=== PATIENT | female | born 2000 | race Caucasian/White ===

== ENCOUNTER 2022-12-17 22:51 | Inpatient (IN) | payer MEDICAID ==
[~2022-12-17] VITALS: Ht 170.2 cm; Wt 68.3 kg
--- NOTE | 2022-12-17 00:30 | NUR ---
1215: 18G to left hand with LR 1 running. Pitocin at 2mu, per EMAR.
--- NOTE | 2022-12-17 22:50 | NUR ---
Pt ambulated onto unit, accompanied by pt significant other and pt mother. Pt oriented to LDR3 and changed into exam gown. 2304: Pt on external monitors x2. This nurse at pt bedside for introductions and POC discussion. Pt denies vaginal bleeding. Pt reports "leaking since 0900 this morning. It was clear, a steady trickling. I feel my ctx all over my lower belly and tightening across my belly. I have been having ctx all day." Amnioswab obtained, positive for ANN. Questions, concerns, and needs encouraged. Pt verbalized understanding and agreement of POC with "no" questions, concerns, or needs.
[2022-12-17 23:30] VITALS: BP 126/77; PULSE 82; TEMP 98.5
--- NOTE | 2022-12-17 23:30 | NUR ---
Ctx tracing intermittently due to pt positioning. This nurse at pt bedside palpating pt abd, with pt consent and explanation, attempting to readjust TOCO monitor.
[2022-12-18] VITALS (45 sets, daily range): BP systolic 92–160; BP diastolic 53–93; PULSE 66–107; TEMP 98.1–98.8
--- NOTE | 2022-12-18 01:15 | NUR ---
0105: Pitocin at 4mu, per EMAR. 0110: Pt off external monitors x2, ambulating to utilize bathroom.
--- NOTE | 2022-12-18 01:45 | NUR ---
Pt requested for a birthing ball. FHR and ctx tracing intermittently due to pt utilizing birthing ball. This nurse at pt bedside palpating abd, with pt consent and explanation, attempting to readjust external monitors x2.
[2022-12-18 01:49] LABS: BASO % 0.2 % (0.0-2.0); EOS % 0.3 % (0.0-4.0); GRAN # 6.3 K/mm3 (1.4-6.5); GRAN % 69.4 % (42.2-75.2); HEMOGLOBIN 10.2 g/dl (12.5-16.0); LYMPH # 1.8 K/mm3 (1.2-3.4); LYMPH % 19.6 % (20.0-51.0); MEAN CELL VOLUME 85 fl (80.0-100.0); MEAN CORPUSCULAR HEMOGLOBIN 28 pg (27-31); MEAN CORPUSCULAR HGB CONC 33 g/dl (33.0-37.0); MEAN PLATELET VOLUME 10.9 fl (7.4-10.4); MONO # 0.9 K/mm3 (0.1-0.6); MONO % 10.3 % (1.7-9.3); PLATELET COUNT 216 K/mm3 (130-400); RED BLOOD COUNT 3.69 M/mm3 (4.10-5.30)
[2022-12-18 01:58] LABS: HEMATOCRIT 31.2 % (37.0-47.0)
--- NOTE | 2022-12-18 02:00 | NUR ---
FHR and ctx tracing intermittently due to pt position on birthing ball. Pt seems to be very uncomfortable and states "07/02 would not recommend this. This hurts." This nurse at pt bedside palpating pt abd, with pt consent and explanation, attempting to readjust external monitors x2. 0157: SVE, with pt consent and explanation, /-2.
[2022-12-18] MEDS ORDERED: PRENATAL TABLET PO (02:02)
[2022-12-18] MEDS ORDERED: PROFERRIN ES12 MG PO (02:03)
[2022-12-18] MEDS ORDERED: TUMS500 MG (02:07)
[2022-12-18] MEDS ORDERED: TYLENOL 325MG325 MG PO (02:08)
--- NOTE | 2022-12-18 02:15 | NUR ---
0210: 18G IV to pt right forearm. 0213: Pt off external monitors x2, OOB ambulating to utilize bathroom.
--- NOTE | 2022-12-18 02:30 | NUR ---
FHR tracing intermittently due to pt positioning, utilizing birthing ball. This nurse at pt bedside palpating pt abd, with pt consent and explanation, attempting to readjust external monitors x2. 0220: Pt back on external monitors x2.
--- NOTE | 2022-12-18 02:45 | NUR ---
FHR tracing intermittently due to pt position on the birthing ball. This nurse at pt bedside palpating pt abd, with pt consent and explanation, attempting to readjust external monitors x2. 0230: LR 2 administered.
--- NOTE | 2022-12-18 03:00 | NUR ---
FHR and ctx tracing intermittently due to pt position on birthing ball. This nurse at pt bedside palpating pt abd, with pt consent and explanation, attempting to readjust external monitors x2. 0255: SVE, with pt consent and explanation, /-2.
--- NOTE | 2022-12-18 03:15 | NUR ---
FHR and ctx tracing intermittently due to pt ambulating and utilizing birthing ball. This nurse at pt bedside palpating pt abd, with pt consent and explanation, attempting to readjust external monitors x2. 0308: Pt off external monitors x2, ambulating to utilize bathroom. 0313: Pt back on external monitors x2. This nurse at pt bedside palpating pt abd, with pt consent and explanation, attempting to readjust external monitors x2.
--- NOTE | 2022-12-18 03:30 | NUR ---
FHR tracing intermittently due to pt positioning on birthing ball. This nurse at pt bedside palpating pt abd, with pt consent and explanation, attempting to readjust external monitors x2.
--- NOTE | 2022-12-18 03:45 | NUR ---
FHR tracing intermittently due to pt positioning on birthing ball. Pt not tolerating "pain" and requests for an epidural at 0342. This nurse at pt bedside palpating pt abd, with pt consent and explanation, attempting to readjust external monitors x2. This nurse notifies Tc Mendoza RN at 0342 via telephone of pt request for epidural.
--- NOTE | 2022-12-18 04:00 | NUR ---
Pt is very uncomfortable and keeps stating "I can't do this. This hurts so bad. This fucking hurts. I can't, I can't. My hips hurt, my backs hurt, my thighs hurt, everything fucking hurts." Pt notified of anesthesia arrival and POC discussed.
--- NOTE | 2022-12-18 04:15 | NUR ---
FHR tracing intermittently due to pt positioning for epidural placement. 0410: Tc Mendoza CRNA at pt bedside. Risks and benefits of epidural discussed. Questions, concerns, needs encouraged. Pt endorses epidural and verbalized understanding and agreement of POC with "no" questions, concerns, or needs.
--- NOTE | 2022-12-18 04:30 | NUR ---
FHR and ctx tracing intermittently due to pt position for epidural placement. This nurse at pt bedside palpating pt abd, with pt consent and explanation, attempting to readjust external monitors x2. 0425: TD by Tc Mendoza CRNA.
--- NOTE | 2022-12-18 04:45 | NUR ---
FHR tracing intermittently due to pt position for epidural placement.
--- NOTE | 2022-12-18 05:15 | NUR ---
0514: Deshpande placed, pt tolerated procedure well. 0515: SVE, with pt consent and explanation, /-2. Bulgy bag noted.
--- NOTE | 2022-12-18 05:30 | NUR ---
FHR and ctx tracing intermittently due to movement and pt positioning. movement and FHR audible throughout room. This nurse at pt bedside palpating pt abd, with pt consent and explanation, attempting to readjust external monitors x2.
--- NOTE | 2022-12-18 05:42 | NUR ---
0117: Pt back on external monitors x2. FHR and ctx tracing intermittently as this nurse is at pt bedside palpating pt abd, with pt consent and explanation, attempting to readjust external monitors x2.
--- NOTE | 2022-12-18 05:45 | NUR ---
FHR and ctx tracing intermittently due to pt postioning and movement. movement and FHR audible throughout room. This nurse at pt bedside palpating pt abd, with pt consent and explanation, attempting to readjust external monitors x2.
--- NOTE | 2022-12-18 06:00 | NUR ---
FHR and ctx tracing intermittently due to pt postioning and movement. movement and FHR audible throughout room. This nurse at pt bedside, palpating pt abd with pt consent and explanation, attempting to readjust external monitors x2.
--- NOTE | 2022-12-18 07:51 | NUR ---
2339: This nurse notified Dr. Dimas, via phonecall, of pt progress. See physician notification. 0300: This nurse notifed Dr. Dimas, via phonecall, of pt progress and to relay that pt would be at 18 hour antwon of prolonged rupture. See physician notification for further details.
--- NOTE | 2022-12-18 07:52 | NUR ---
0640-RN BEDSIDE AND MOVES PATIENT TO HIGH TAILORS SITTING POSITION. 0658-MD BEDSIDE
--- NOTE | 2022-12-18 07:58 | NUR ---
0700 SVE BY LISANDRO YANCEY PT MOVED TO BACK FOR SVE, RN REPOSITIONS PT TO LEFT LATERAL WITH PEANUT BALL.
--- NOTE | 2022-12-18 08:25 | NUR ---
RN BEDSIDE; SVE COMPLETE AT 0811 0813 RN CALLS LISANDRO YANCEY AND UPDATES MD ON SVE, CTX PATTERN. ORDERS TO START PUSHING.
--- NOTE | 2022-12-18 08:50 | NUR ---
report given by inna de los santos and pt care assumed by Juan DE LOS SANTOS at this time
--- NOTE | 2022-12-18 09:31 | NUR ---
0835 PT UP TO STIRRUPS 0838 MCMAHON BEDSIDE 0839 PT PUSHING WITH CONTRACTIONS 0842 OF VIABLE FEMALE 0850 SPONTANEOUS DELIVERY OF PLACENTA
--- NOTE | 2022-12-18 09:56 | NUR ---
OF VIABLE FEMALE AT 0842; LISANDRO YANCEY BEDSIDE FOR DELIVERY. PLACENTA DELIVERED SPONTANEOUSLY AT 0850. LISANDRO YANCEY REPAIRED A LEFT LABIAL TEAR. PLACENTA SENT TO PATHOLOGY FOR PROLONGED RUPTURE OF MEMBRANES. PT AFEBRILE.
[2022-12-18] MEDS ORDERED: MOTRIN 800800 MG/TAB PO (11:13)
--- NOTE | 2022-12-18 11:33 | NUR ---
RN ASSISTS PT TO BATHROOM TO ATTEMPT TO VOID. PT UNABLE TO VOID AT THIS TIME BUT WALKS WITH STEADY GAIT TO AND FROM BATHROOM WITH STANDBY ASSIST FROM RN. PERICARE PERFORMED, GOWN CHANGED.
--- NOTE | 2022-12-18 11:57 | NUR ---
RN MOVES PT TO ROOM; ORIENTS PATIENT AND S.O. TO ROOM. PROVIDES EDUCATION ON POC
--- NOTE | 2022-12-18 16:15 | NUR ---
RN BEDSIDE; HELPING PT TO BREASTFEED
[2022-12-19 05:00] VITALS: BP 110/82; PULSE 72; TEMP 98
[2022-12-19 07:15] VITALS: BP 129/76; PULSE 72; TEMP 97.9
--- NOTE | 2022-12-19 10:25 | NUR ---
Initial visit; Parents, Grandma and sister were pleased to have [employer] visit their new little girl and offer Special Blessings for her. thanked them for also choosing our hospital.
[2022-12-19 19:30] VITALS: BP 141/88; PULSE 72; TEMP 98.5
[2022-12-20 07:35] VITALS: BP 106/68; PULSE 76; TEMP 98.2
== END 2022-12-20 11:13 | disposition home or self-care (01) | DRG 807 ==
LOC: LDRO 22:51 → LDR 23:50 → LDRO 12-18 00:14 → LDR 12-18 02:33 → OB 12-18 02:33
PROVIDERS: ADMIT Obstetrics & Gynecology
PROC: 10E0XZZ Delivery of Products of Conception, External Approach (ICD-10-PCS; principal; 2022-12-18)
PROC: 0HQ9XZZ Repair Perineum Skin, External Approach (ICD-10-PCS; 2022-12-18)
DX: O99.02 Anemia complicating childbirth (principal); Z37.0 Single live birth; D64.9 Anemia, unspecified; O70.0 First degree perineal laceration during delivery; Z3A.37 37 weeks gestation of pregnancy
CPT/HCPCS: J0690; J2405; J2590; J7120